=== PATIENT | female | born 1960 | race Hispanic/Latino ===

== ENCOUNTER 2019-01-12 16:25 | Outpatient (AMBR) | payer MEDICAID, SELFPAY ==
--- NOTE | 2019-01-12 17:47 | PT.ODAYNRPT ---
PT Outpatient Daily Note Date of Service: January 12, 2019 OP Daily Note Visit Reasons: sciatica Outpatient Physical Therapy Treatment Date: 01/12/19 Subjective: Pt returns to therapy after a L LE vein procedure and reports the lateral LE's aren't hurting like before but she feels like she is weak since she hasn't been walking or exercising. Objective: SEe F/S for therex MT: STM B ITB's x7' with Graston Assessment: Good response to manual therapy to lessen lateral LE pain Plan: Continue per POC Length of Time (minutes) of Treatment: 30 Minutes Office Procedures PT Procedures PT Date of Service: 01/12/19 Therapeutic Exercise 30 minutes: Yes
== END 2019-01-15 23:59 | disposition home or self-care (01) ==
PROVIDERS: PCP Physician Assistant; Referring Provider Physician Assistant; Visit Provider Physician Assistant
DX: M54.41 Lumbago with sciatica, right side (principal)
CPT/HCPCS: 97110

== ENCOUNTER 2019-02-14 17:00 | Outpatient (AMBR) | payer MEDICAID, SELFPAY ==
--- NOTE | 2019-01-18 18:21 | PT.ODAYNRPT ---
PT Outpatient Daily Note Date of Service: January 18, 2019 OP Daily Note Visit Reasons: sciatica Outpatient Physical Therapy Treatment Date: 01/18/19 Subjective: Overall better but the hips still hurt at times Objective: See F/S for therex MT: STM B GT and ITB's with Jasmeet x7' Assessment: Good response to manual therapy to reduce LE pain Plan: Continue per POC Length of Time (minutes) of Treatment: 30 Minutes Office Procedures PT Procedures PT Date of Service: 01/18/19 Therapeutic Exercise 30 minutes: Yes
--- NOTE | 2019-01-24 18:02 | PT.ODAYNRPT ---
PT Outpatient Daily Note Date of Service: January 24, 2019 OP Daily Note Visit Reasons: sciatica Outpatient Physical Therapy Treatment Date: 01/24/19 Subjective: The outside of the hips feel better since starting therapy Objective: See F/S for therex MT: STM B GT and ITB's with Jasmeet x7' Assessment: Good response to manual therapy to reduce LE pain Plan: Continue per POC Length of Time (minutes) of Treatment: 30 Minutes Office Procedures PT Procedures PT Date of Service: 01/24/19 Therapeutic Exercise 30 minutes: Yes PT Procedures PT Date of Service: 01/18/19 Therapeutic Exercise 30 minutes: Yes
--- NOTE | 2019-01-27 18:07 | PT.ODAYNRPT ---
PT Outpatient Daily Note Date of Service: January 27, 2019 OP Daily Note Visit Reasons: sciatica Outpatient Physical Therapy Treatment Date: 01/27/19 Subjective: Pt fell 2 days ago at a store and is wearing a R UE sling and says she hurt her R thigh but that the MD said she could continue therapy which has helped reduce B LE pain. Objective: See F/S for therex MT: STM B GT and ITB's with Graston x7' Assessment: Good response to manual therapy to reduce LE pain Plan: Continue per POC Length of Time (minutes) of Treatment: 30 Minutes Office Procedures PT Procedures PT Date of Service: 01/24/19 Therapeutic Exercise 30 minutes: Yes PT Procedures PT Date of Service: 01/27/19 Therapeutic Exercise 30 minutes: Yes PT Procedures PT Date of Service: 01/18/19 Therapeutic Exercise 30 minutes: Yes
--- NOTE | 2019-01-31 17:43 | PT.ODAYNRPT ---
PT Outpatient Daily Note Date of Service: January 31, 2019 OP Daily Note Visit Reasons: sciatica Outpatient Physical Therapy Treatment Date: 01/31/19 Subjective: Therapy has helped reduce B LE pain. Objective: See F/S for therex MT: STM B GT and ITB's with Graston x7' Assessment: Good response to manual therapy to reduce LE pain Plan: Continue per POC Length of Time (minutes) of Treatment: 30 Minutes Office Procedures PT Procedures PT Date of Service: 01/24/19 Therapeutic Exercise 30 minutes: Yes PT Procedures PT Date of Service: 01/27/19 Therapeutic Exercise 30 minutes: Yes PT Procedures PT Date of Service: 01/18/19 Therapeutic Exercise 30 minutes: Yes PT Procedures PT Date of Service: 01/31/19 Therapeutic Exercise 30 minutes: Yes
--- NOTE | 2019-02-14 17:43 | PT.ODAYNRPT ---
PT Outpatient Daily Note Date of Service: February 14, 2019 OP Daily Note Visit Reasons: sciatica Outpatient Physical Therapy Treatment Date: 02/14/19 Subjective: Therapy has helped reduce B LE pain and helped her to walk better. She c/o R shoulder pain since the fall that doesn't let her sleep well. Objective: See F/S for therex MT: STM B GT and ITB's with Graston x7' Assessment: Good response to manual therapy to reduce LE pain. She ambulates with short discontinuous steps on the TM. Plan: Continue per POC Length of Time (minutes) of Treatment: 30 Minutes Office Procedures PT Procedures PT Date of Service: 01/24/19 Therapeutic Exercise 30 minutes: Yes PT Procedures PT Date of Service: 01/27/19 Therapeutic Exercise 30 minutes: Yes PT Procedures PT Date of Service: 01/18/19 Therapeutic Exercise 30 minutes: Yes PT Procedures PT Date of Service: 01/31/19 Therapeutic Exercise 30 minutes: Yes PT Procedures PT Date of Service: 02/14/19 Therapeutic Exercise 30 minutes: Yes
== END 2019-02-14 23:59 | disposition home or self-care (01) ==
PROVIDERS: PCP Physician Assistant; Referring Provider Physician Assistant; Visit Provider Physician Assistant
DX: M54.16 Radiculopathy, lumbar region (principal); R53.1 Weakness
CPT/HCPCS: 97110